=== PATIENT | male | born 1990 | race American Indian/Alaskan Native ===

== ENCOUNTER 2019-04-13 23:34 | Emergency (ER) | payer OTHER ==
[2019-04-14 00:32] VITALS: BP 155/88
--- NOTE | 2019-04-14 01:01 | XRay Report ---
. CHEST 1 VIEW INDICATION: Chest Pain. COMPARISON: None. FINDINGS: Support devices: None. Heart: Within normal limits. Lungs/Pleura: No acute air space or interstitial disease. Additional findings: None. IMPRESSION: No acute abnormality. Signer Name: Jose Rodríguez MD Signed: 04/14/2019 12:57 AM Workstation Name: [id number]
--- NOTE | 2019-04-14 01:19 | Emergency Department Report ---
ED General Adult HPI - General Chief complaint: Chest Pain Stated complaint: CHEST PAIN HEADACHE NAUSEA DIARRHEA Time Seen by Provider: 04/14/19 01:08 Source: patient Mode of arrival: Ambulatory Limitations: No Limitations - History of Present Illness Initial comments: Mr. Gonzalez is a 28 yo male with hx of HTN who presents with cough, right sided chest pain, chills, nasal congestion and diarrhea. Non productive cough. Has been sick for several days. Mild crampy pain in right chest intermittent. Possible sick contacts at place of employment. -: Gradual, days(s) (several) Location: head, chest Severity scale (0 -10): 4 Quality: aching Consistency: now resolved Improves with: none Worsens with: none Associated Symptoms: cough, malaise, other (diarrhea) - Related Data Allergies Allergy/AdvReac Type Severity Reaction Status Date / Time No Known Allergies Allergy Unverified 04/14/19 00:25 ED Review of Systems ROS: Stated complaint: CHEST PAIN HEADACHE NAUSEA DIARRHEA Other details as noted in HPI Comment: All other systems reviewed and negative Constitutional: chills, malaise Respiratory: cough Cardiovascular: chest pain Gastrointestinal: diarrhea ED Past Medical Hx - Past Medical History Previous Medical History?: Yes Hx Hypertension: Yes - Surgical History Past Surgical History?: No - Social History Smoking Status: Never Smoker Substance Use Type: Alcohol, Marijuana ED Physical Exam - General Limitations: No Limitations General appearance: alert, in no apparent distress - Head Head exam: Present: atraumatic, normocephalic - Eye Eye exam: Present: normal appearance - ENT ENT exam: Present: mucous membranes moist - Neck Neck exam: Present: normal inspection, full ROM - Respiratory Respiratory exam: Present: normal lung sounds bilaterally. Absent: respiratory distress, wheezes, rales, rhonchi - Cardiovascular Cardiovascular Exam: Present: regular rate, normal rhythm, normal heart sounds. Absent: systolic murmur, diastolic murmur, rubs, gallop - GI/Abdominal GI/Abdominal exam: Present: soft, normal bowel sounds. Absent: distended, tenderness, guarding, rebound - Rectal Rectal exam: Present: deferred - Extremities Exam Extremities exam: Present: normal inspection - Neurological Exam Neurological exam: Present: alert, oriented X3 - Psychiatric Psychiatric exam: Present: normal affect, normal mood - Skin Skin exam: Present: warm, dry, intact, normal color. Absent: rash ED Course Vital Signs 11/19/19 11/19/19 00:16 00:26 Temperature 98.6 F 98.6 F Pulse Rate 85 82 Respiratory 18 18 Rate Blood Pressure 155/88 155/88 O2 Sat by Pulse 98 97 Oximetry ED Medical Decision Making - EKG Data EKG shows normal: sinus rhythm, axis, QRS complexes Rate: normal - EKG Data Interpretation: no acute changes, normal EKG - Radiology Data Radiology results: report reviewed cxr: nap according to radiologist - Medical Decision Making dx: influenza CXR negative for PTX, PNA EKG without signs of pericarditis recommended rest hydration Critical care attestation.: If time is entered above; I have spent that time in minutes in the direct care of this critically ill patient, excluding procedure time. ED Disposition Clinical Impression: Influenza Disposition: DC-01 TO HOME OR SELFCARE Is pt being admited?: No Does the pt Need Aspirin: No Condition: Stable Instructions: Influenza (ED) Forms: Work/School Release Form(ED)
== END 2019-04-14 01:30 | disposition home or self-care (01) ==
LOC: ED 23:34
DX: J11.1 Influenza due to unidentified influenza virus with other respiratory manifestations (principal); I10 Essential (primary) hypertension; F12.10 Cannabis abuse, uncomplicated
CPT/HCPCS: 71045; 93005; 93010; 99283

== ENCOUNTER 2020-06-21 17:54 | Emergency (ER) | payer OTHER ==
[2020-06-21 19:42] VITALS: BP 180/95
--- NOTE | 2020-06-21 19:45 | Emergency Department Report ---
ED Male HPI - General Chief complaint: Nausea/Vomiting/Diarrhea Stated complaint: PELVIC PAIN/NAUSEA Source: patient Mode of arrival: Ambulatory Limitations: No Limitations - History of Present Illness Initial comments: 29 y/o obese HIV positive male had unprotected sex with person a couple days ago and developed dysuria MD Complaint: penile discharge, dysuria -: Gradual Radiation: none Severity: mild Consistency: constant Improves with: none Worsens with: none dysuria (possible STD ), nausea/vomiting. denies: urinary retention, blood in urine, incontinence - Related Data Sexually active: Yes Previous Rx's Medication Instructions Recorded Last Taken Type Azithromycin [Zithromax] 2,000 mg PO ONCE #8 tablet 06/21/20 Unknown Rx DOXYCYCLINE Hyclate [Vibramycin 100 mg PO Q12HR #20 capsule 06/21/20 Unknown Rx CAP] metroNIDAZOLE [Flagyl TAB] 2,000 mg PO ONCE #8 tablet 06/21/20 Unknown Rx Allergies Allergy/AdvReac Type Severity Reaction Status Date / Time No Known Allergies Allergy Unverified 04/14/19 00:25 ED Review of Systems ROS: Stated complaint: PELVIC PAIN/NAUSEA Other details as noted in HPI Comment: All other systems reviewed and negative ED Past Medical Hx - Past Medical History Previous Medical History?: Yes Hx Hypertension: Yes - Social History Smoking Status: Never Smoker Substance Use Type: Marijuana - Medications Home Medications: Home Medications Medication Instructions Recorded Confirmed Last Taken Type Azithromycin [Zithromax] 2,000 mg PO ONCE #8 tablet 06/21/20 Unknown Rx DOXYCYCLINE Hyclate [Vibramycin 100 mg PO Q12HR #20 capsule 06/21/20 Unknown Rx CAP] metroNIDAZOLE [Flagyl TAB] 2,000 mg PO ONCE #8 tablet 06/21/20 Unknown Rx ED Physical Exam - General Limitations: No Limitations General appearance: alert, in no apparent distress - Head Head exam: Present: atraumatic, normocephalic - Eye Eye exam: Present: normal appearance, EOMI Pupils: Present: normal accommodation - ENT ENT exam: Present: normal exam, mucous membranes moist - Neck Neck exam: Present: normal inspection, full ROM - Respiratory Respiratory exam: Present: normal lung sounds bilaterally. Absent: respiratory distress - Cardiovascular Cardiovascular Exam: Present: regular rate, normal rhythm. Absent: systolic murmur, diastolic murmur, rubs, gallop - GI/Abdominal GI/Abdominal exam: Present: soft, normal bowel sounds. Absent: tenderness, guarding, hyperactive bowel sounds, hypoactive bowel sounds, organomegaly - Rectal Rectal exam: Present: deferred - Extremities Exam Extremities exam: Present: normal inspection - Back Exam Back exam: Present: normal inspection - Neurological Exam Neurological exam: Present: alert, oriented X3 - Psychiatric Psychiatric exam: Present: normal affect, normal mood - Skin Skin exam: Present: warm, dry, intact, normal color. Absent: rash ED Course Vital Signs 06/21/20 19:41 Temperature 97.8 F Pulse Rate 72 Respiratory 14 Rate Blood Pressure 180/95 O2 Sat by Pulse 99 Oximetry Critical care attestation.: If time is entered above; I have spent that time in minutes in the direct care of this critically ill patient, excluding procedure time. ED Disposition Clinical Impression: HTN (hypertension), Dysuria Disposition: -01 TO HOME OR SELFCARE Is pt being admited?: No Does the pt Need Aspirin: No Condition: Stable Instructions: Dysuria, Hypertension, Adult, Hypertension (ED) Prescriptions: metroNIDAZOLE [Flagyl TAB] 2,000 mg PO ONCE #8 tablet DOXYCYCLINE Hyclate [Vibramycin CAP] 100 mg PO Q12HR #20 capsule Azithromycin [Zithromax] 2,000 mg PO ONCE #8 tablet Referrals: [facility] Depart [Outside] - 3-5 Days
[2020-06-21 20:47] LABS: Mucus,Urine FEW /HPF; RBC,Urine < 1.0 /HPF (0.0-6.0)
[2020-06-21 20:58] LABS: Bilirubin,Urine NEG (Negative); Blood,Urine NEG (Negative); Color,Urine Yellow (Yellow); Protein,Urine <15 mg/dL mg/dL (Negative)
== END 2020-06-21 23:00 | disposition home or self-care (01) ==
LOC: ED 17:54
DX: I10 Essential (primary) hypertension (principal); R30.0 Dysuria; F12.90 Cannabis use, unspecified, uncomplicated; Z79.899 Other long term (current) drug therapy
CPT/HCPCS: 81001; 99283